=== PATIENT | female | born 1950 | race Caucasian/White ===

== ENCOUNTER 2023-12-23 13:23 | Emergency (ER) | payer OTHER, SELFPAY ==
[2023-12-23 13:32] VITALS: BP 147/70
== END 2023-12-23 15:12 ==
LOC: EMR 13:23
PROVIDERS: EMERGENCY PHYSICIAN Emergency Medicine
DX: R07.9 Chest pain, unspecified (principal); M79.602 Pain in left arm; Z53.21 Procedure and treatment not carried out due to patient leaving prior to being seen by health care provider
CPT/HCPCS: 93005

== ENCOUNTER → 2024-02-29 18:08 | Outpatient (REF) | payer OTHER, SELFPAY | LOC: MRI 3T 18:08 | PROVIDERS: ATTENDING PHYSICIAN Nurse Practitioner Family; FAMILY PHYSICIAN Family Medicine | DX: R42 Dizziness and giddiness (principal); R51.9 Headache, unspecified; R53.1 Weakness | CPT/HCPCS: 70553; A9575 ==

== ENCOUNTER → 2024-12-17 11:14 | Outpatient (REF) | payer OTHER, SELFPAY | LOC: PAVMRI 11:14 | PROVIDERS: ATTENDING PHYSICIAN Neurological Surgery; FAMILY PHYSICIAN Family Medicine | DX: D32.0 Benign neoplasm of cerebral meninges (principal) | CPT/HCPCS: 70553; A9575 ==

== ENCOUNTER 2024-12-24 06:20 | Day surgery (SDC) | payer OTHER, SELFPAY | END 2024-12-24 12:52 | disposition home or self-care (01) | LOC: GI 06:20 | PROVIDERS: ATTENDING PHYSICIAN Internal Medicine Gastroenterology | DX: Z12.11 Encounter for screening for malignant neoplasm of colon (principal); D12.0 Benign neoplasm of cecum; D12.2 Benign neoplasm of ascending colon; D12.3 Benign neoplasm of transverse colon; K57.30 Diverticulosis of large intestine without perforation or abscess without bleeding; K64.0 First degree hemorrhoids | CPT/HCPCS: 45385; 45380; 88305 ==

== ENCOUNTER 2025-05-12 18:47 | Emergency (ER) | payer OTHER, SELFPAY ==
[2025-05-12 18:55] VITALS: BP 192/90
[2025-05-12 22:39] VITALS: BP 164/69
[2025-05-12 22:41] VITALS: BMI 30.1
[2025-05-12 23:00] VITALS: BP 150/68
--- NOTE | 2025-05-12 23:08 | ED.GENMED ---
History of Present Illness
General
Chief Complaint: Fall
Source: patient
Exam Limitations: none
Time Seen by Provider: 05/12/25 23:04
Nursing documentation reviewed up to this point in time: agreed with
History of Present Illness
History of Present Illness:
Note:
CHIEF COMPLAINT(S)
Fall resulting in head and knee injury.
HISTORY OF PRESENT ILLNESS
The patient is a 74-year-old female with a past medical history of hypertension, brain meningioma, who experienced a fall today after tripping over a hose and striking her head against the bottom of the deck outside the house. She reports concerns
due to a past brain surgery for meningioma nine months ago which required a plate insertion. The patient denies any loss of consciousness during the fall. She experiences mild right sided neck pain but no numbness, tingling, or visual changes,
except for her usual double vision related to an ocular muscle issue corrected years ago and she has not been experiencing any today. Knee pain is noted after the fall, localized to the right knee with mild swelling observed near the patellar tendon
on examination. The patient is able to bear weight on the knee. She denies any other injuries.
CHRONIC MEDICAL CONDITIONS SIGNIFICANTLY AFFECTING CARE
1. History of meningioma with surgical intervention.
PHYSICAL EXAM
Nursing notes reviewed and vital signs reviewed.
General: Patient is well appearing and in no acute distress; non-toxic
Skin: Warm and dry, no rashes or lesions
Head: Normocephalic, atraumatic, no tenderness palpation of facial bones, TMJ joints intact bilaterally, no palpable hematomas of the scalp
Eyes: Sclera non-icteric. EOMs intact.
Neck: No midline spinal tenderness. Right upper trapezius tenderness noted.
Cardiac: Regular rate and rhythm, no murmurs
Peripheral Vascular: 2+ dp and pt pulses on the right
Pulm: Normal respiratory effort
Abdomen: No abdominal tenderness to palpation
Musculoskeletal: No joint laxity with varus valgus stress. Negative anterior drawer. Full range of motion of the right knee joint. No pain with internal/external rotation of the right hip. No pain with plantarflexion, extension of the right foot.
Neuro: CN II-XII intact, no focal neurologic deficits.
Psychiatric: Appropriate mood and affect.
PROBLEM LIST
Acute Problems:
1. Head injury secondary to fall.
2. Right knee pain post-fall with suspected patellar tendon sprain.
Chronic Problems:
1. Post-surgical status post-meningioma removal with mesh implant.
2. 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
PLAN
1. Patient to receive a knee immobilizer to aid in healing.
2. Ensure stability and weight-bearing ability with the knee immobilizer prior to discharge.
3. Recommend the patient update her neurologist about the recent head injury and imaging studies.
4. Provide the patient with a copy of the current imaging records for her neurologist.
DIFFERENTIAL DIAGNOSIS
The Differential Diagnosis includes, in no particular order and is not limited to:
1. Head Trauma
2. Subdural Hematoma
3. Ligamentous Knee Injury
4. Fracture of the Patella
5. Soft Tissue Knee Injury
6. Mild Traumatic Brain Injury
7. Cerebral Contusion
8. Contusion of the Knee
9. Exacerbation of Pre-existing Neurologic Condition
10. Post-concussive Syndrome
CHART REVIEW
Reviewed discharge summary from patient seen for cellulitis of the face
MDM/DISPOSITION
The patient is a 74-year-old female with a past medical history of hypertension, brain meningioma, who experienced a fall today after tripping over a hose and striking her head against the bottom of the deck outside the house. She not lose
consciousness. She has been waiting in emergency department for few hours and did not develop new symptoms after the fall or any progressive symptoms. On my physical exam she is well-appearing no acute distress. She is neurologically intact. She
has no midline spinal tenderness she does have some right-sided upper trapezius tenderness. She went for her head CT which showed no acute intracranial hemorrhage and it showed her left parietal calvarial surgical mesh was in place without
displacement or depression. She also went for x-ray with showed mild soft tissue swelling of the anterior patella anterior to the tendon however no acute fracture or dislocation. She will be placed in knee immobilizer and advised to follow-up with
orthopedics. Patient stable for discharge. Stressed follow-up with neurologist and PCP. Patient stable for discharge.
Review of Systems
Review of Systems
All Other Systems: ROS reviewed and negative except as documented in HPI and ROS
Phy Exam
Physical Exam
Physical Exam:
see hpi
Course
Orders/Labs/Results
Orders:
Orders
05/12/25 18:59
CR Knee- Right 4 Or More View* Urgent
Comment:
Reason For Exam: fell landed on right knee
05/12/25 19:00
CT Head W/o Iv Contrast Urgent
Comment: brain surgery at [place] 07/10/2024 for meningioma
Reason For Exam: fell hit head
05/12/25 23:19
Knee Immobilizer Right-Treatme ONCE
Vital Signs
Initial and Last Documented VS:
Initial Vital Signs
Temp Pulse Resp BP Pulse Ox
98.6 F 63 16 192/90 98
05/12/25 18:55 05/12/25 18:55 05/12/25 18:55 05/12/25 18:55 05/12/25 18:55
Last Documented Vital Signs
Temp Pulse Resp BP Pulse Ox
98.6 F 63 16 150/68 97
05/12/25 18:55 05/12/25 18:55 05/12/25 18:55 05/12/25 23:00 05/12/25 23:10
*Pulse Oximetry
SaO2: 97
Oxygen Mode of Delivery: Room air
Patient hypoxic: no
*Critical Care Note
Total Time (30-74mins, 75-104mins- exclusive of procedures): Not Applicable
ED Attending Note
-
Portions of this chart may have been created with voice recognition software.� Occasional wrong word or��sound alike� substitutions may have occurred due to the inherent limitations of voice recognition software.
Discharge Plan
Departure
Patient Disposition: Home (Routine Discharge)
Date of Disposition: 05/12/25
Time of Disposition: 23:23
Patient with high blood pressure during this ER visit?: Yes
Condition: Good
Discharge Problem:
Fall from slip, trip, or stumble, Contusion of knee, right
Instructions: Head Injury in Adults (DC), Preventing falls in adults, BLOOD PRESSURE
Prescriptions:
No Action
calcium carbonate-vitamin D3 1 UDTAB tablet
1 udtab PO DAILY
vitamin B complex [B-Complex] 1 TAB tablet
1 tab PO DAILY
verapamil 80 MG tablet
80 mg PO QID
Referrals:
Tristin Nicole MD [Family Provider, Family Practice]
Conrado Iglesias MD [Active, Orthopedics] - Call in 1-3 days for appt
Activity Restrictions/Additional Instructions:
Please follow-up with your neurologist and share the results of your head CT. Please continue to monitor your symptoms.
You can use your knee immobilizer for the next few days and ambulating to allow your knee to heal. I recommend elevating at home to help with swelling.
PLEASE RETURN EMERGENCY DEPARTMENT SHOULD YOU DEVELOP ACUTE WORSENING YOUR SYMPTOMS, INABILITY AMBULATE, LOSS OF SENSATION IN YOUR KNEE, LOSS OF CONSCIOUSNESS, CHEST PAIN, SHORTNESS OF BREATH, PERSISTENT HEADACHES, INTRACTABLE NAUSEA OR VOMITING, OR
ANY OTHER SIGNS OR SYMPTOMS WORRISOME TO YOU.
Interventions
Interventions:
*Risk Screen - Suicide Last Done: 05/12/25 18:55
*General Assessment Last Done: 05/12/25 22:43
*Neglect/Abuse Screening Last Done: 05/12/25 18:55
*ED- Fall Risk Assessment Last Done: 05/12/25 22:43
*ED COVID-19 Vaccine History Last Done: 05/12/25 22:43
*Nursing Disposition Last Done: 05/12/25 23:45
ED-Musculoskeletal Assessment Last Done: 05/12/25 22:44
ED- Neurological Assessment Last Done: 05/12/25 22:43
ED-Skin Assessment Last Done: 05/12/25 23:10
Discharge Date and Time
Discharge Date/Time: 05/12/25 23:45
Print Language: MOLDOVAN
== END 2025-05-12 23:45 | disposition home or self-care (01) ==
LOC: EMR 18:47
PROVIDERS: EMERGENCY PHYSICIAN Emergency Medicine; FAMILY PHYSICIAN Family Medicine
DX: S80.01XA Contusion of right knee, initial encounter (principal); W01.0XXA Fall on same level from slipping, tripping and stumbling without subsequent striking against object, initial encounter; I10 Essential (primary) hypertension; D32.0 Benign neoplasm of cerebral meninges
CPT/HCPCS: 99284; 29505; 70450; 73564